=== PATIENT | male | born 1960 | race Caucasian/White ===

== ENCOUNTER → 2018-10-16 | Outpatient (CLI) | payer MEDICARE ==
[~2018-10-16] VITALS: Ht 188 cm; Wt 68.0 kg
[~2018-10-16] MED LIST: BENTYL 20 MG TA20 M1 PO; DULCOLAX5 MG PO; FEVERALL120 MG RECTAL; HALDOL 0.5 MG0.5 MG PO; LACTULOSE10 GM/152 PO; LEVOTHYROXINE500 MCG PO; MORPHINE 00.5 MG/1 M PO; ONDANSETRON HCL4 M2 PO; OXYCONTIN10 M1 PO; REMERON15 MG PO; XANAX 0.5 MG0.5 MG PO; ZOLOFT100 MG PO
[2018-10-16 08:09] VITALS: BP 128/83
[2018-10-16 08:22] LABS: CALCIUM 9.5 mg/dL (8.5-10.1); CREATININE 1.9 mg/dL (0.6-1.3); HEMATOCRIT 26.7 % (42.0-52.0); HEMOGLOBIN 8.3 gm/dL (14.0-18.0); MCH 21.5 pg (26.0-34.0); MCV 69.4 fL (80.0-100.0); MPV 7.1 fl. (7.2-11.1); POTASSIUM 4.8 mmol/L (3.5-5.1); RBC 3.85 mil/uL (4.50-6.00); RDW-CV 21.9 % (10.5-14.5); WBC 12.4 thou/uL (4.0-11.0)
[2018-10-16 08:24] LABS: APTT 30.1 Seconds (25.0-31.3)
[2018-10-16 13:55] VITALS: BP 102/58
== END | disposition home or self-care (01) ==
LOC: M.INT 07:35
PROVIDERS: Radiology Vascular & Interventional Radiology
DX: R18.0 Malignant ascites (principal); Z85.07 Personal history of malignant neoplasm of pancreas; Z85.05 Personal history of malignant neoplasm of liver; Z79.899 Other long term (current) drug therapy; Z98.890 Other specified postprocedural states